=== PATIENT | male | born 1950 | race Caucasian/White ===

== ENCOUNTER → 2017-02-03 | Outpatient (CLI) | payer BC, OTHER ==
[~2017-02-03] MED LIST: ACET50TA PO; ASPI81TA7 PO; DOCU10ELUD PO; LEVO500T PO; LIPI20TA PO; LISI5TAB PO; OMEP40CA2 PO; OXYCO5TA PO; ZANT150T PO; [UNRECOGNIZED DRUG - CODE] PO; cialis OR
[2017-02-03 12:27] LABS: ALBUMIN 3.9 GM/DL (3.2-5.2); ALBUMIN/GLOBULIN RATIO 1.26 (1.00-1.93); ALKALINE PHOSPHATASE 101 U/L (45-117); ALT/SGPT 45 U/L (12-78); ANION GAP 7 MEQ/L (8-16); AST/SGOT 27 U/L (15-37); BILIRUBIN,TOTAL 0.6 MG/DL (0.2-1.0); BLOOD UREA NITROGEN 18 MG/DL (7-18); CALCIUM LEVEL 9.4 MG/DL (8.8-10.2); CARBON DIOXIDE LEVEL 30 MEQ/L (21-32); CHLORIDE LEVEL 107 MEQ/L (98-107); CHOLESTEROL LEVEL 174 MG/DL (<200); CREATININE FOR GFR 1.04 MG/DL (0.70-1.30); GLOMERULAR FILTRATION RATE > 60.0 (>49); GLUCOSE, FASTING 99 MG/DL (80-110); SODIUM LEVEL 144 MEQ/L (136-145); TRIGLYCERIDES LEVEL 136 MG/DL (<150)
[2017-02-03 12:31] LABS: POTASSIUM SERUM 5.2 MEQ/L (3.5-5.1)
== END ==
LOC: M SMT 08:23
PROVIDERS: ATTEND Internal Medicine
DX: Z01.810 Encounter for preprocedural cardiovascular examination (principal); C61 Malignant neoplasm of prostate; I10 Essential (primary) hypertension; E78.5 Hyperlipidemia, unspecified

== ENCOUNTER → 2017-08-07 | Outpatient (CLI) | payer BC, OTHER ==
[2017-08-07 14:36] LABS: ALBUMIN 3.9 GM/DL (3.2-5.2); ALKALINE PHOSPHATASE 99 U/L (45-117); ALT/SGPT 44 U/L (12-78); ANION GAP 4 MEQ/L (8-16); AST/SGOT 22 U/L (7-37); BILIRUBIN,TOTAL 0.7 MG/DL (0.2-1.0); BLOOD UREA NITROGEN 22 MG/DL (7-18); CALCIUM LEVEL 9.3 MG/DL (8.8-10.2); CARBON DIOXIDE LEVEL 30 MEQ/L (21-32); CHLORIDE LEVEL 107 MEQ/L (98-107); CHOLESTEROL LEVEL 171 MG/DL (<200); CREATININE FOR GFR 1.07 MG/DL (0.70-1.30); GLOMERULAR FILTRATION RATE > 60.0 (>49); GLUCOSE, FASTING 99 MG/DL (80-110); SODIUM LEVEL 141 MEQ/L (136-145); TOTAL PROTEIN 6.9 GM/DL (6.4-8.2); TRIGLYCERIDES LEVEL 129 MG/DL (<150)
== END ==
LOC: M SMT 08:21
PROVIDERS: ATTEND Internal Medicine
DX: E78.5 Hyperlipidemia, unspecified (principal); I10 Essential (primary) hypertension

== ENCOUNTER 2018-04-11 10:39 | Day surgery (SDC) | payer BC, OTHER ==
[~2018-04-11 10:39] MED LIST changes: -ACET50TA PO; +ACETAMINOPHEN 325 MG TAB PO; -ASPI81TA7 PO; -DOCU10ELUD PO; -LEVO500T PO; -LIPI20TA PO; -LISI5TAB PO; -OMEP40CA2 PO; -OXYCO5TA PO; +PHENYLEPHRINE HCL 10 % OPHTH. SOL 5ML OS; -ZANT150T PO; -[UNRECOGNIZED DRUG - CODE] PO; -cialis OR
[2018-04-11] MEDS: CYCLOPENTOLATE 2% OPHTH SOLN 2ML BTL OS (11:56)
[2018-04-11] MEDS: TROPICAMIDE 1% OPHTH SOLN 2ML OS (11:57)
[2018-04-11] MEDS: LIDOCAINE 3.5 % 1ML OPHTH TOPICAL GEL OU (11:57)
[2018-04-11] MEDS: OFLOXACIN 0.3 % (OCUFLOX) OPTH SOL 5ML OS (11:57)
[2018-04-11] MEDS: PHENYLEPHRINE 2.5% OPHTH SOL 2ML OS (11:58)
[2018-04-11] MEDS: MOXIFLOXACIN IN BSS 0.25MG/0.25ML INTRACAMERAL INJ (OR EYE ONLY)(J2280) As Ordered (12:43)
[2018-04-11] MEDS: TRIAMCINOLONE PRES FR 40 MG/ML 1ML(TRIESENCE)(OR EYE ONLY)(J3300 PER 1MG) As Ordered (12:43)
[2018-04-11] MEDS: HEALON DUET (HEALON 10MG/ML 0.55ML & HEALON ENDOCOAT 30MG/ML 0.85ML) As Ordered (12:43)
[2018-04-11] MEDS: POVIDONE-IODINE 5% OPHTH PREP SOL 30ML As Ordered (12:43)
[2018-04-11] MEDS: BSS with VANC/TOB/EPI for EYE CASES IR (12:43)
[2018-04-11] MEDS: LIDOCAINE 1% SDV 5 ML VIAL As Ordered (12:43)
[2018-04-11] MEDS: ATROPINE SULFATE 1% OP SOLN 2 ML BTL As Ordered (12:45)
[2018-04-11] MEDS ORDERED: MIDAZOLAM INJ 2 MG/2 ML VIAL (J2250) As Ordered (12:56)
[2018-04-11] MEDS ORDERED: fentaNYL 100 MCG/2 ML INJECTION (J3010) As Ordered (12:56)
[2018-04-11] MEDS ORDERED: ONDANSETRON 4MG/2ML VIAL (J2405) IV (13:15)
[2018-04-11] MEDS ORDERED: ACETAMINOPHEN TAB 650MG DOSE (2X325MG) PO (13:15)
[2018-04-11] MEDS ORDERED: TRIMETHOBENZAMIDE 300 MG CAP PO (13:15)
[2018-04-11] MEDS: AcetaZOLAMIDE 500 MG ER CAP PO (13:25)
== END 2018-04-11 13:50 | disposition home or self-care (01) ==
LOC: M SDC 10:39
DX: H25.9 Unspecified age-related cataract (principal); I10 Essential (primary) hypertension; E78.5 Hyperlipidemia, unspecified; K21.9 Gastro-esophageal reflux disease without esophagitis; Z87.891 Personal history of nicotine dependence; Z85.46 Personal history of malignant neoplasm of prostate; Z79.82 Long term (current) use of aspirin; Z79.899 Other long term (current) drug therapy
CPT/HCPCS: 66984